=== PATIENT | male | born 1980 | race Caucasian/White ===

== ENCOUNTER 2017-01-09 05:30 | Emergency (ER) | payer BC, OTHER ==
--- NOTE | 2017-01-09 06:09 | PDOC ---
*Physical Exam - Vital Signs Last Vital Signs Temp Pulse Resp BP Pulse Ox 98.7 F 80 14 128/85 96 01/09/17 05:55 01/09/17 05:55 01/09/17 05:55 01/09/17 05:55 01/09/17 05:55 Medical Decision Making - Medical Decision Making 01/09/17 06:09 agree with care from FROYLAN Young *DC/Admit/Observation/Transfer Diagnosis at time of Disposition: Knee pain, right - Referrals Referrals: Deonte Phoenix MD [Staff Physician] - - Patient Instructions Printed Discharge Instructions: DI for Knee Pain Additional Instructions: Please take medications as prescribed and follow up with your occupational health services as planned. If your pain persists in your knee, please follow up with orthopedics. If you develop any fever, nausea, vomiting; or redness, swelling, or warmth to your hands surrounding the cuts, please return to the ER.
[2017-01-09 06:13] VITALS: BP 128/85; PULSE 80; TEMP 98.7; BMI 25.1
[2017-01-09] MEDS ORDERED: KETOROLAC TROMETHAMINE 30 MG/1 ML VIAL IM ONE (06:18)
[2017-01-09] MEDS ORDERED: KETOROLAC TROMETHAMINE 30 MG/1 ML VIAL ONE (06:24)
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
== END 2017-01-09 06:56 | disposition home or self-care (01) ==
LOC: JER 05:30
PROC: 3E0233Z Introduction of Anti-inflammatory into Muscle, Percutaneous Approach (ICD-10-PCS; principal; 2017-01-09)
DX: M25.561 Pain in right knee (principal); Y35.811A Legal intervention involving manhandling, law enforcement official injured, initial encounter; Y93.9 Activity, unspecified; Y92.9 Unspecified place or not applicable; Y99.0 Civilian activity done for income or pay
CPT/HCPCS: 99282-25

== ENCOUNTER 2017-03-31 17:57 | Emergency (ER) | payer OTHER ==
[2017-03-31 18:03] VITALS: BP 143/80; PULSE 79; TEMP 97.5; BMI 26.2
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
[2017-03-31 19:49] LABS: HIV 1 & 2 AB NEGATIVE; HIV 1 AGp24 NEGATIVE
[2017-04-02 06:07] LABS: HEP B SURFACE AB Reactive (.)
== END 2017-03-31 18:56 | disposition home or self-care (01) ==
LOC: JERFT 17:57
DX: H53.8 Other visual disturbances (principal); Z77.21 Contact with and (suspected) exposure to potentially hazardous body fluids; Y35.891A Legal intervention involving other specified means, law enforcement official injured, initial encounter; X58.XXXA Exposure to other specified factors, initial encounter; Y93.89 Activity, other specified; Y92.9 Unspecified place or not applicable
CPT/HCPCS: 36415; 86704; 86706; 86803; 87340; 87389; 99281-25

== ENCOUNTER 2017-04-02 03:00 | Emergency (ER) | payer OTHER ==
[2017-04-02 03:24] VITALS: BP 123/96; PULSE 79; TEMP 98.6; BMI 25.8
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
== END 2017-04-02 04:56 | disposition home or self-care (01) ==
LOC: JER 03:00
DX: M79.601 Pain in right arm (principal); Y35.891A Legal intervention involving other specified means, law enforcement official injured, initial encounter; Y92.9 Unspecified place or not applicable; Y93.29 Activity, other involving ice and snow
CPT/HCPCS: 73060-TC-RT; 73070-TC-RT; 99281-25

== ENCOUNTER 2017-10-21 05:09 | Emergency (ER) | payer OTHER ==
[2017-10-21] MEDS ORDERED: IBUPROFEN 600 MG TABLET (FP) PO ONE ×2 (05:51→05:57)
[2017-10-21 05:56] VITALS: BP 121/84; PULSE 64; TEMP 99.1; BMI 27.3
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
== END 2017-10-21 06:55 | disposition home or self-care (01) ==
LOC: SUPCPDRO 05:09 → JER 05:09
DX: S80.02XA Contusion of left knee, initial encounter (principal); Y35.811A Legal intervention involving manhandling, law enforcement official injured, initial encounter; Y93.89 Activity, other specified; Y92.89 Other specified places as the place of occurrence of the external cause; Y99.0 Civilian activity done for income or pay
CPT/HCPCS: 73560-TC-LT-FY; 99281-25

== ENCOUNTER 2018-03-20 03:42 | Emergency (ER) | payer OTHER ==
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
[2018-03-20 04:08] VITALS: BP 128/79; PULSE 82; TEMP 98.2; BMI 24.3
== END 2018-03-20 04:09 | disposition home or self-care (01) ==
LOC: JER 03:42
DX: Z77.21 Contact with and (suspected) exposure to potentially hazardous body fluids (principal); Y35.811A Legal intervention involving manhandling, law enforcement official injured, initial encounter; Y93.89 Activity, other specified; Y92.89 Other specified places as the place of occurrence of the external cause; Y99.0 Civilian activity done for income or pay
CPT/HCPCS: 99282-25

== ENCOUNTER 2018-11-01 03:21 | Emergency (ER) | payer OTHER ==
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
[2018-11-01] MEDS ORDERED: IBUPROFEN 600 MG TABLET (FP) PO ONE ×2 (04:26→04:29)
[2018-11-01 04:34] VITALS: BP 116/63; PULSE 76; TEMP 98.6; BMI 25.8
== END 2018-11-01 05:04 | disposition home or self-care (01) ==
LOC: JER 03:21
DX: S39.012A Strain of muscle, fascia and tendon of lower back, initial encounter (principal); S86.811A Strain of other muscle(s) and tendon(s) at lower leg level, right leg, initial encounter; Y35.811A Legal intervention involving manhandling, law enforcement official injured, initial encounter; Y93.89 Activity, other specified; Y92.89 Other specified places as the place of occurrence of the external cause; Y99.0 Civilian activity done for income or pay
CPT/HCPCS: 99283-25

== ENCOUNTER 2022-09-06 03:04 | Emergency (ER) | payer OTHER ==
[2022-09-06] MEDS ORDERED: FLUORESCEIN NA 1 EA STRIP OS ONE (03:08)
[2022-09-06] MEDS ORDERED: TETRACAINE 0.5% HCL 0.6ML DROPPER.BOTTLE OS ONE (03:08)
[2022-09-06] MEDS ORDERED: TETRACAINE 0.5% OPHTH SOLN 2 ML BOTTLE ONE (03:11)
[2022-09-06] MEDS ORDERED: ERYTHROMYCIN 0.5% OPHTHALMIC OINTMENT 3.5 GM TUBE OS ONE (03:24)
[2022-09-06] MEDS ORDERED: ERYTHROMYCIN 0.5% OPHTHALMIC OINTMENT 3.5 GM TUBE ONE (03:32)
[2022-09-06 03:45] VITALS: BP 154/97; PULSE 87; RESP 16; TEMP 98.1; BMI 28.0
== END 2022-09-06 03:44 | disposition home or self-care (01) ==
LOC: JER 03:04
DX: H02.814 Retained foreign body in left upper eyelid (principal); W25.XXXA Contact with sharp glass, initial encounter
CPT/HCPCS: 99283-25

== ENCOUNTER 2022-12-02 04:44 | Emergency (ER) | payer OTHER ==
[2022-12-02 04:57] VITALS: BP 128/80; PULSE 84; RESP 18; TEMP 98; BMI 25.1
[2022-12-02] MEDS ORDERED: ACETAMINOPHEN 500 MG TABLET (FP) ONE (06:09)
[2022-12-02] MEDS ORDERED: ACETAMINOPHEN 500 MG TABLET (FP) PO ONE (06:11)
[2022-12-02 11:54] LABS: HIV INTERPRETATION NEGATIVE (NEGATIVE)
== END 2022-12-02 09:07 | disposition home or self-care (01) ==
LOC: JERFT 04:44 → JER 04:44 → JERFT 09:07
DX: M54.2 Cervicalgia (principal); Z77.21 Contact with and (suspected) exposure to potentially hazardous body fluids; Y04.0XXA Assault by unarmed brawl or fight, initial encounter; Y99.0 Civilian activity done for income or pay
CPT/HCPCS: 36415; 70490-TC; 86704; 86706; 87389; 87522; 99284-25